=== PATIENT | male | born 1960 | race Caucasian/White ===

== ENCOUNTER 2021-06-18 07:54 | Day surgery (SDC) | payer OTHER ==
[~2021-06-18] VITALS: Ht 160 cm; Wt 83.2 kg
[2021-06-18 09:16] VITALS: BP 127/80; PULSE 82; TEMP 98.8
[2021-06-18 09:55] VITALS: BP 103/73; PULSE 80; TEMP 97.3
--- NOTE | 2021-06-18 09:55 | NUR ---
Written report obtained. Vitals obtained. The patient is drowsy but oriented. Sprite and a warm muffin provided. Call stout is within reach. Warm blanket provided.
[2021-06-18 10:10] VITALS: BP 95/70; PULSE 84
--- NOTE | 2021-06-18 10:10 | NUR ---
Vitals obtained. The patient denies nausea. No vomiting. Call stout remains within reach.
[2021-06-18 10:25] VITALS: BP 114/75; PULSE 75
--- NOTE | 2021-06-18 10:25 | NUR ---
Vitals obtained. Ice water provided. Call stout remains within reach. The patient expressed desire to be discharged.
[2021-06-18 10:40] VITALS: BP 124/74; PULSE 79
--- NOTE | 2021-06-18 10:40 | NUR ---
Vitals obtained. IV discontinued. Catheter tip intact. Pressure bandage applied. No swelling or redness noted. DC instructions and educational material was reviewed the the patient, who verbalized understanding and signed the related paperwork. The patient denied having any questions or concerns. The patient denied needing assistance changing into his personal clothes.
--- NOTE | 2021-06-18 10:55 | NUR ---
The patient was escorted out the the patient entrence via wheelchair by Kle[facility]. The patient has their DC packet in hand and was transferred into the care of his who is present to drive.
== END 2021-06-18 10:55 | disposition home or self-care (01) ==
LOC: SDCO 07:54
DX: Z12.11 Encounter for screening for malignant neoplasm of colon (principal); Z86.010 Personal history of colon polyps; Z87.891 Personal history of nicotine dependence
CPT/HCPCS: J2704; J7030